=== PATIENT | female | born 1995 | race Caucasian/White ===

== ENCOUNTER 2020-07-27 19:15 | Emergency (ER) | payer BC ==
[~2020-07-27] VITALS: Ht 160 cm; Wt 81.8 kg
[2020-07-27] MEDS ORDERED: FLEXERIL 1010 MG/TAB PO (21:46)
[2020-07-27 22:40] VITALS: BP 129/71; PULSE 82; TEMP 98.4
== END 2020-07-27 22:40 | disposition home or self-care (01) ==
LOC: COL.ER 19:15
DX: S80.812A Abrasion, left lower leg, initial encounter (principal); S80.811A Abrasion, right lower leg, initial encounter; S40.812A Abrasion of left upper arm, initial encounter; S40.811A Abrasion of right upper arm, initial encounter; M54.6 Pain in thoracic spine; M54.2 Cervicalgia; M25.511 Pain in right shoulder; V86.09XA Driver of other special all-terrain or other off-road motor vehicle injured in traffic accident, initial encounter
CPT/HCPCS: J1885; J2270; J2405; J3360; J7030

== ENCOUNTER → 2020-12-13 | Outpatient (CLI) | payer BC ==
[~2020-12-13] MED LIST: FLEXERIL 1010 MG/TAB PO
== END ==
LOC: MC.RAD 08:24
DX: N63.10 Unspecified lump in the right breast, unspecified quadrant (principal)

== ENCOUNTER → 2021-02-04 | Outpatient (CLI) | payer BC ==
[~2021-02-04] MED LIST changes: +INDERAL 20MG20 MG PO; +PROZAC40 MG PO; +SYNTHROID0.075 MG/T PO; +TOPAMAX 25MG25 M1 PO
== END ==
LOC: MC.RAD 13:53
DX: N64.4 Mastodynia (principal); N64.89 Other specified disorders of breast

== ENCOUNTER 2021-02-05 17:01 | Emergency (ER) | payer BC ==
[~2021-02-05] VITALS: Ht 160 cm; Wt 88.2 kg
[~2021-02-05 17:01] MED LIST changes: -INDERAL 20MG20 MG PO; -PROZAC40 MG PO; -SYNTHROID0.075 MG/T PO; -TOPAMAX 25MG25 M1 PO
[2021-02-05 17:37] LABS: BASO # 0.1 K/mm3 (0.0-0.2); BASO % 0.5 % (0.0-2.0); EOS # 0.8 K/mm3 (0.0-0.7); EOS % 7.5 % (0.0-4.0); GRAN # 6.5 K/mm3 (1.4-6.5); GRAN % 59.8 % (42.2-75.2); HEMATOCRIT 42.1 % (37.0-47.0); HEMOGLOBIN 14.2 g/dl (12.5-16.0); LYMPH # 2.8 K/mm3 (1.2-3.4); LYMPH % 25.5 % (20.0-51.0); MEAN CELL VOLUME 90 fl (80.0-100.0); MEAN CORPUSCULAR HEMOGLOBIN 30 pg (27-31); MEAN CORPUSCULAR HGB CONC 34 g/dl (33.0-37.0); MEAN PLATELET VOLUME 9.6 fl (7.4-10.4); MONO # 0.7 K/mm3 (0.1-0.6); MONO % 6.1 % (1.7-9.3); PLATELET COUNT 562 K/mm3 (130-400); RED BLOOD COUNT 4.67 M/mm3 (4.10-5.30); REDCELL DISTRIBUTION WIDTH-CV 13.2 % (11.5-14.5)
[2021-02-05 17:50] LABS: INR 1.1 (0.8-3.0)
[2021-02-05 18:09] LABS: ALBUMIN 4.2 gm/dL (3.5-5.0); CALCIUM 8.9 mg/dL (8.4-10.2); CREATININE, serum 0.87 mg/dL (0.57-1.11); POTASSIUM 3.9 mmol/L (3.5-4.5); TOTAL PROTEIN 7.6 gm/dL (6.2-8.1)
[2021-02-05 20:18] VITALS: BP 108/76; PULSE 87; TEMP 97.6
== END 2021-02-05 20:26 | disposition left against medical advice (07) ==
LOC: COL.ER 17:01
PROVIDERS: Personal Emergency Response Attendant
DX: R29.810 Facial weakness (principal); R51.9 Headache, unspecified
CPT/HCPCS: J0780; J1200; Q9967

== ENCOUNTER 2021-02-07 11:06 | Emergency (ER) | payer BC ==
[~2021-02-07] VITALS: Ht 160 cm; Wt 88.2 kg
[2021-02-07 11:41] VITALS: TEMP 98.8
[2021-02-07] MEDS ORDERED: INDERAL 20MG20 MG PO (12:30)
[2021-02-07] MEDS ORDERED: TOPAMAX 25MG25 M1 PO (12:30)
[2021-02-07] MEDS ORDERED: SYNTHROID0.075 MG/T PO (12:31)
[2021-02-07] MEDS ORDERED: PROZAC40 MG PO (12:31)
[2021-02-07 14:34] VITALS: BP 108/73; PULSE 84
== END 2021-02-07 14:34 | disposition home or self-care (01) ==
LOC: COL.ER 11:06
DX: R53.1 Weakness (principal); Z86.73 Personal history of transient ischemic attack (TIA), and cerebral infarction without residual deficits

== ENCOUNTER 2021-05-20 09:11 | Emergency (ER) | payer BC ==
[~2021-05-20] VITALS: Ht 160 cm; Wt 88.6 kg
[~2021-05-20 09:11] MED LIST changes: +INDERAL 20MG20 MG PO; +PROZAC40 MG PO; +SYNTHROID0.075 MG/T PO; +TOPAMAX 25MG25 M1 PO
[2021-05-20 09:13] VITALS: TEMP 98.7
[2021-05-20 09:38] LABS: BASO % 0.4 % (0.0-2.0); EOS # 0.3 K/mm3 (0.0-0.7); EOS % 3.9 % (0.0-4.0); GRAN # 5.4 K/mm3 (1.4-6.5); HEMATOCRIT 38.2 % (37.0-47.0); HEMOGLOBIN 12.9 g/dl (12.5-16.0); LYMPH # 1.5 K/mm3 (1.2-3.4); LYMPH % 19.9 % (20.0-51.0); MEAN CELL VOLUME 91 fl (80.0-100.0); MEAN CORPUSCULAR HEMOGLOBIN 31 pg (27-31); MEAN CORPUSCULAR HGB CONC 34 g/dl (33.0-37.0); MEAN PLATELET VOLUME 9.7 fl (7.4-10.4); MONO # 0.5 K/mm3 (0.1-0.6); MONO % 6.3 % (1.7-9.3); PLATELET COUNT 476 K/mm3 (130-400); RED BLOOD COUNT 4.18 M/mm3 (4.10-5.30); REDCELL DISTRIBUTION WIDTH-CV 14.9 % (11.5-14.5)
[2021-05-20 09:55] LABS: BILIRUBIN,TOTAL 0.8 mg/dL (0.2-1.2); CALCIUM 8.5 mg/dL (8.4-10.2); CREATININE, serum 0.81 mg/dL (0.57-1.11); POTASSIUM 3.8 mmol/L (3.5-4.5); TOTAL PROTEIN 6.9 gm/dL (6.2-8.1)
[2021-05-20 12:41] VITALS: BP 116/71; PULSE 76
== END 2021-05-20 12:42 | disposition home or self-care (01) ==
LOC: COL.ER 09:11
PROVIDERS: Personal Emergency Response Attendant
DX: R56.9 Unspecified convulsions (principal); R51.9 Headache, unspecified

== ENCOUNTER 2021-05-29 20:29 | Emergency (ER) | payer BC ==
[~2021-05-29] VITALS: Ht 160 cm; Wt 86.4 kg
[2021-05-29 20:36] VITALS: TEMP 98
[2021-05-29 20:53] LABS: BASO # 0.1 K/mm3 (0.0-0.2); BASO % 0.7 % (0.0-2.0); EOS # 0.4 K/mm3 (0.0-0.7); EOS % 3.6 % (0.0-4.0); GRAN # 5.7 K/mm3 (1.4-6.5); GRAN % 54.7 % (42.2-75.2); HEMATOCRIT 41.8 % (37.0-47.0); HEMOGLOBIN 14.3 g/dl (12.5-16.0); LYMPH # 3.6 K/mm3 (1.2-3.4); LYMPH % 34.4 % (20.0-51.0); MEAN CELL VOLUME 90 fl (80.0-100.0); MEAN CORPUSCULAR HEMOGLOBIN 31 pg (27-31); MEAN CORPUSCULAR HGB CONC 34 g/dl (33.0-37.0); MEAN PLATELET VOLUME 9.8 fl (7.4-10.4); MONO # 0.7 K/mm3 (0.1-0.6); MONO % 6.3 % (1.7-9.3); PLATELET COUNT 558 K/mm3 (130-400); RED BLOOD COUNT 4.66 M/mm3 (4.10-5.30); REDCELL DISTRIBUTION WIDTH-CV 14.6 % (11.5-14.5)
[2021-05-29 21:14] LABS: ALBUMIN 4.6 gm/dL (3.5-5.0); BILIRUBIN,TOTAL 0.9 mg/dL (0.2-1.2); CREATININE, serum 0.95 mg/dL (0.57-1.11); POTASSIUM 4.3 mmol/L (3.5-4.5); TOTAL PROTEIN 7.8 gm/dL (6.2-8.1)
[2021-05-29 21:33] LABS: TSH w REFLEX 14.641 uIU/mL (0.350-4.940)
[2021-05-29 22:34] LABS: COLLECTION METHOD RANDOM VOIDED
[2021-05-29 22:40] LABS: PH 7 (5-8); SQUAMOUS EPITHELIAL None Seen /hpf (0-10); URINE APPEARANCE Clear (CLEAR/HAZY); URINE BACTERIA None Seen /hpf (NONE SEEN); URINE BILIRUBIN Negative (NEGATIVE); URINE BLOOD Negative (NEGATIVE); URINE COLOR Straw (YELLOW); URINE GLUCOSE Negative (NEGATIVE); URINE KETONE Trace (NEGATIVE); URINE LEUKOCYTE ESTERASE Negative (NEGATIVE); URINE NITRATE Negative (NEGATIVE); URINE PROTEIN(semi-quant) Negative (NEGATIVE); URINE RBC 0-2 /hpf (0-2); URINE UROBILINOGEN Negative (NEGATIVE)
[2021-05-29 22:51] VITALS: BP 107/62; PULSE 95
== END 2021-05-29 22:53 | disposition home or self-care (01) ==
LOC: COL.ER 20:29
PROVIDERS: Emergency Medicine
DX: R41.82 Altered mental status, unspecified (principal); D75.839 Thrombocytosis, unspecified; R94.6 Abnormal results of thyroid function studies